=== PATIENT | female | born 1980 | race Caucasian/White ===

== ENCOUNTER 2017-05-11 12:07 | Emergency (ER) | payer MEDICAID ==
[~2017-05-11] VITALS: Ht 167.6 cm; Wt 77.1 kg
[~2017-05-11 12:07] MED LIST: NORCO 5-325 TA1 EACH PO; NORFLEX100 MG PO
[2017-05-11] MEDS ORDERED: UNICOMPLEX M TA1 TA1 PO (12:12)
[2017-05-11] MEDS ORDERED: MOBIC15 MG PO (13:03)
== END 2017-05-11 13:15 | disposition home or self-care (01) ==
LOC: ER 12:07
DX: S22.32XA Fracture of one rib, left side, initial encounter for closed fracture (principal); Y04.8XXA Assault by other bodily force, initial encounter; Y93.89 Activity, other specified; Y92.89 Other specified places as the place of occurrence of the external cause; Y99.8 Other external cause status